=== PATIENT | female | born 1990 | race African-American/Black ===

== ENCOUNTER 2019-06-04 15:25 | Emergency (ER) | payer OTHER ==
[2019-06-04] MEDS ORDERED: MULTCAP PO (15:44)
[2019-06-04 19:25] VITALS: BP 118/70
== END 2019-06-04 19:23 | disposition home or self-care (01) ==
LOC: M ED 15:25 → EDBD 15:25 → M ED 19:23
DX: F43.0 Acute stress reaction (principal); Z63.0 Problems in relationship with spouse or partner; Z88.0 Allergy status to penicillin

== ENCOUNTER → 2020-01-25 | Outpatient (REF) | payer OTHER ==
[~2020-01-25] MED LIST: MULTCAP PO
[2020-01-25 21:26] LABS: CHLAMYDIA DNA AMPLIFICATION POSITIVE (NEGATIVE); GC DNA AMPLIFICATION NEGATIVE (NEGATIVE)
== END ==
LOC: M SFHCLERA 14:21
PROVIDERS: ATTEND Nurse Practitioner Family
DX: N89.8 Other specified noninflammatory disorders of vagina (principal)